=== PATIENT | male | born 1960 | race Caucasian/White ===

== ENCOUNTER 2021-08-13 11:11 | Emergency (ER) | payer SELFPAY ==
[2021-08-13 11:14] VITALS: BP 187/94; PULSE 77; RESP 16; TEMP 36.4; O2SAT 100
[2021-08-13] MEDS: Lidocaine 2% Jelly 6 ML SYR (11:50)
[2021-08-13 11:54] LABS: Bilirubin Negative (Negative); Blood Moderate (Negative); Clarity Clear (Clear); Glucose Negative (Negative); Ketones Negative (Negative); Leukocyte Esterase Negative (Negative); Nitrite Negative (Negative); Specific Gravity 1.025 (1.005-1.025); Urobilinogen 0.2 EU/dL (Up TO 0.2)
--- NOTE | 2021-08-13 11:56 | ED.GENADUL_ITS ---
Discharge Plan Disposition Patient Disposition: HOME Condition: Stable Discharge Details Clinical Impression: Acute urinary retention Primary Care Provider: Jerzy Arevalo ED Provider: Annie Guevara Home Meds and New Rx's Prescriptions: New tamsulosin [Flomax] 0.4 mg capsule 0.4 mg PO DAILY Qty: 7 0RF Discharge Instructions Instructions: Urinary Retention in Men (ED) Additional Instructions: Take Flomax Stay hydrated Repeat of your urine in 1 week for blood Follow-up with the urologist for removal of your catheter and return earlier should you have fever, chills, decreased urine production Make sure you switch from the larger bag to a leg bag when you are ambulatory Referrals: Jerzy Arevalo [Primary Care Provider] - Dedrick Conde MD [[facility] STAFF PHYSICIAN] - Discharge Data Discharge Date/Time-TO BE ENTERED AT DEPARTURE: 08/13/21 12:35 Medical Decision Making Tee catheter was placed by patient RN Patient tolerated without incident 1000 mL of fluid was drained On reassessment, abdomen is completely nontender His urine will need to be rechecked as he does have RBC's pt made aware He is referred to Dr. Conde for follow-up and placed on flomax Medical Records Medical records reviewed: Yes I reviewed the patient's medical records. HPI General Date/Time Provider Initiated Documentation: 08/13/21 11:41 . HPI Narrative: This 61-year-old male presents with urinary retention for the past 24 hours. He has burning with urination. He states he has had similar symptoms in the past as needed urethral stricture stretch. This is been done in [place] previously. His urologist affiliated with this hospital. He denies any abdominal pain, nausea, vomiting. He does have a history of kidney stone he states he has no flank pain at this time. He is otherwise feeling well. Denies chest pain or breath. Denies any dizziness or weakness. Related Data Home Medications Medication Instructions Recorded Confirmed tamsulosin 0.4 mg capsule (Flomax) 0.4 mg PO DAILY #7 cap 08/13/21 Previous Rx's Medication Instructions Recorded tamsulosin 0.4 mg capsule (Flomax) 0.4 mg PO DAILY #7 cap 08/13/21 Allergies Allergy/AdvReac Type Severity Reaction Status Date / Time No Known Allergies Allergy Unverified 08/13/21 11:31 General Stated Complaint: Urinary VIKTORIYA: 3 Review of Systems All systems reviewed & are unremarkable except as noted in HPI and below PFSH All Active Problems (Updated 08/13/21 @ 12:10 by ABIODUN Moise) Acute urinary retention (Acute) Social History Smoking/Tobacco Use Status: Current every day Smoking risk assessment performed?: Yes Alcohol Intake: current Alcohol Intake frequency: 0-2 drinks per day Alcohol type: beer Drug use: Daily Substance use type: marijuana Do you feel safe at home: Yes Exam Const General: cooperative, comfortable and no acute distress Eyes Sclera: sclerae normal Resp Effort & Inspection: normal respiratory effort Auscultation: clear to auscultation bilaterally Cardio Rate: regular rate GI Other: Mild suprapubic tenderness, no CVA tenderness Skin General skin exam: no rashes or lesions noted Neuro General: patient alert Course Vital Signs Vital signs: Vital Signs Temperature 36.4 C L 08/13/21 11:14 Pulse 77 08/13/21 11:14 Respiratory Rate 16 08/13/21 11:14 Blood Pressure 187/94 H 08/13/21 11:14 Pulse Oximetry 100 08/13/21 11:14 Temperature 36.4 C L 08/13/21 11:14 Temperature Source Skin 08/13/21 11:14 Pulse 77 08/13/21 11:14 Respiratory Rate 16 08/13/21 11:14 Respiratory Effort 08/13/21 11:30 Blood Pressure 187/94 H 08/13/21 11:14 Blood Pressure Position Sitting 08/13/21 11:14 Pulse Oximetry 100 08/13/21 11:14 Oxygen Delivery Method Room Air 08/13/21 11:14 Oxygen Flow Rate 0 08/13/21 11:14 Pain Level 7 08/13/21 11:29 PAWSS Have you Been Recently Intoxicated or Drunk Within the Last 30 days?: No Have you Ever Experienced Previous Episodes of Alcohol Withdrawal?: No Have you ever Experienced Withdrawal Seizures?: No Have you ever Experienced Delirium Tremens(DT)s?: No Have you ever undergone Alcohol Rehabilitation Treatment (i.e, inpt ot outpatient treatment programs)?: No Have you ever Experienced Blackouts?: No Have you ever Combined Alcohol with other Downers within the last 90 days?: No Have you ever Combined Alcohol with any other Substance of Abuse during the last 90 days?: No Positive Blood Alcohol level on Presentation? [PCS.BAL]: No Evidence of Increased Autonomic Activity (i.e. HR>120, tremor, sweating, agitation, nausea)?: No Result: 0
[2021-08-13 11:59] LABS: Bacteria Negative HPF (Negative); C & S Indicated? No; Casts Negative LPF (Negative); Crystals Negative HPF (Negative); Epithelial Cells Few HPF (Negative); Mucus Trace (Negative); WBC 0-2 HPF (0-5)
[2021-08-13 12:40] VITALS: BP 162/100
--- NOTE | 2021-08-13 15:33 | NUR.NOTE ---
Referral for Urology with Dr. Conde sent to office. f/u within 1 week.
== END 2021-08-13 12:35 | disposition home or self-care (01) ==
PROVIDERS: Emergency Provider Physician Assistant; PCP Family Medicine
DX: R33.9 Retention of urine, unspecified (principal); R31.29 Other microscopic hematuria
CPT/HCPCS: 51702; 99284; 81003; 81015

== ENCOUNTER 2021-08-16 10:12 | Emergency (ER) | payer SELFPAY ==
[2021-08-16 10:14] VITALS: BP 188/101; PULSE 90; RESP 16; TEMP 36.8; O2SAT 97
--- NOTE | 2021-08-16 10:20 | ED.GENADUL_ITS ---
Discharge Plan Disposition Patient Disposition: HOME Condition: Stable Discharge Details Clinical Impression: Tee catheter problem Primary Care Provider: Jerzy Arevalo ED Provider: June Engel Home Meds and New Rx's Prescriptions: New hyoscyamine sulfate 0.125 mg tablet,disintegrating 0.125 mg PO QID Qty: 30 0RF Continued tamsulosin [Flomax] 0.4 mg capsule 0.4 mg PO DAILY Qty: 7 0RF Discharge Instructions Instructions: Urinary Retention in Men (ED), Tee Catheter Placement and Care (ED) Additional Instructions: Your symptoms of urinary leakage are likely due to spasms of your bladder. You are being placed on a medication to help with bladder spasms called hyoscyamine. Please take this medication as directed. The urology office will call you soon to schedule a follow-up appointment in the next 1-2 weeks to have your Tee catheter removed. You will still plan to follow-up with your scheduled appointment with urology on September 12, 2021. Continue your Flomax daily as directed. Drink plenty of fluids. Return immediately to the emergency department if you develop any worsening or new concerning symptoms. Stand Alone Forms: Work Release Referrals: Dedrick Conde MD [ [facility] STAFF PHYSICIAN] - Discharge Data Discharge Date/Time-TO BE ENTERED AT DEPARTURE: 08/16/21 17:17 Discharge Physician: June Engel Medical Decision Making 61-year-old male with a history of urethral stricture and BPH who was seen here 3 days ago and had Tee catheter placed for urinary retention presents for urinary leakage around the catheter site for the past few days. Denies fever, vomiting or abdominal pain. Blood pressure hypertensive on arrival, now improved. He appears comfortable and nontoxic. The urine within the tubing and bag appears yellow and clear. The tip of the penis is attached with surgical tape to the tubing otherwise normal exam. His abdomen is soft and nontender. Case discussed with Dr. Conde who recommends keeping the current Tee catheter in place, irrigating and placing patient on antispasmodic medication to help with bladder spasm as this is likely the source of his urinary leakage. Urology office will call patient in the next week or 2 for Tee removal and voiding trial. Patient has a follow-up appointment with urology on 09/12. Patient is agreeable with this plan. No recommendation for urinalysis per Dr. Conde as UA unremarkable for UTI on 08/13. Nursing able to flush the catheter easily with removal of small blood clots but catheter now otherwise flushing clear. Usual and customary return precautions given prior to discharge. Medical Records Medical records reviewed: Yes I reviewed the patient's medical records. HPI General Mode of arrival: ambulatory . Date/Time Provider Initiated Documentation: 08/16/21 10:19 . Limitations to Documentation: no limitations . Information obtained by: patient . HPI Narrative: Pt is a 61yo M w/ a h/o urinary retention seen here 3 days ago and had a Tee catheter placed presents for concern for leaking of urine around the catheter site. Patient states he had urinary retention developing 1 day before seen here in the ED on 08/13. He states surgically Tee catheter was placed for 3 days ago, he has noted leakage of urine around the catheter site. He states he is the catheter also seem to be falling out and he attempted to push it back and put it to his penis. He denies any fever, nausea, vomiting, abdominal pain or dysuria at his urethra. Related Data Home Medications Medication Instructions Recorded Confirmed tamsulosin 0.4 mg capsule (Flomax) 0.4 mg PO DAILY #7 cap 08/13/21 08/16/21 hyoscyamine sulfate 0.125 mg 0.125 mg PO QID #30 tab 08/16/21 disintegrating tablet Previous Rx's Medication Instructions Recorded tamsulosin 0.4 mg capsule (Flomax) 0.4 mg PO DAILY #7 cap 08/13/21 hyoscyamine sulfate 0.125 mg 0.125 mg PO QID #30 tab 08/16/21 disintegrating tablet Allergies Allergy/AdvReac Type Severity Reaction Status Date / Time No Known Allergies Allergy Unverified 08/16/21 10:20 General Stated Complaint: Urinary VIKTORIYA: 3 Review of Systems All systems reviewed & are unremarkable except as noted in HPI and below Constitutional Constitutional: Reports as per HPI, Denies chills and Denies fever(s) Eyes Eyes: Denies blurry vision ENT Ears, Nose, Mouth, and Throat: Denies dizziness, Denies sore throat and Denies throat swelling Cardiovascular Cardiovascular: Denies chest pain and Denies dyspnea Respiratory Respiratory: Denies cough and Denies dyspnea Gastrointestinal Gastrointestinal: Denies abdominal pain, Denies diarrhea and Denies vomiting Genitourinary Genitourinary: Denies hematuria, Reports difficulty urinating and Reports dysuria Musculoskeletal Musculoskeletal: Denies back pain and Denies numbness Integumentary/Breasts Skin/Breast: Denies lesions and Denies rash Neurologic Neurologic: Denies dizziness, Denies localized weakness and Denies numbness Allergic/Immunologic Allergic/Immunologic: Denies throat swelling PFSH All Active Problems (Updated 08/16/21 @ 11:30 by June Engel DO) Tee catheter problem (Acute) Acute urinary retention (Acute) Medical History (Updated 08/16/21 @ 11:30 by June Engel DO) BPH (benign prostatic hyperplasia) Kidney stones Urethral stricture Surgical History (Updated 08/16/21 @ 11:16 by June Engel DO) Hx of lithotripsy Social History Smoking/Tobacco Use Status: Current every day Smoking risk assessment performed?: Yes Alcohol Intake: current Alcohol Intake frequency: 0-2 drinks per day Alcohol type: beer Drug use: Daily Substance use type: marijuana Do you feel safe at home: Yes Do you feel safe in your relationship?: Yes Exam Const General: cooperative, healthy appearing and no acute distress Orientation: alert, awake and oriented x3 HENMT Head: normal to inspection Mouth: oral mucosae normal Eyes General: appearance normal, both eyes and all related structures Neck Neck: normal visual inspection Resp Effort & Inspection: normal respiratory effort and able to speak in complete sentences Auscultation: clear to auscultation bilaterally Cardio Rate: regular rate Rhythm: regular rhythm GI Palpation: soft, not firm, no guarding, not rigid and nontender Other: Tee catheter in place. There is surgical tape connecting the catheter to the end of the penis. Penis appears normal to inspection. Normal scrotum. No testicular tenderness or edema. Urine within tubing and bag is yellow and clear. Skin General skin exam: no rashes or lesions noted Neuro General: patient alert, patient awake and patient oriented x3 Motor: muscle tone normal throughout Extrem General: normal to inspection and full ROM Psych Appearance: grossly normal Affect: normal affect Course Vital Signs Vital signs: Vital Signs Temperature 98.2 F 08/16/21 10:14 Pulse 90 08/16/21 10:14 Respiratory Rate 16 08/16/21 10:14 Blood Pressure 188/101 H 08/16/21 10:14 Pulse Oximetry 97 08/16/21 10:14 Temperature 98.2 F 08/16/21 10:14 Temperature Source Skin 08/16/21 10:14 Pulse 90 08/16/21 10:14 Respiratory Rate 16 08/16/21 10:14 Blood Pressure 188/101 H 08/16/21 10:14 Blood Pressure Position Sitting 08/16/21 10:14 Pulse Oximetry 97 08/16/21 10:14 Oxygen Delivery Method Room Air 08/16/21 10:14 Oxygen Flow Rate 0 08/16/21 10:14 Pain Level 0 08/16/21 10:14
[2021-08-16 10:23] VITALS: BP 163/97
--- NOTE | 2021-08-16 11:32 | NUR.NOTE ---
Nursing Note: Pt info faxed to urology to be seen within a week for urinary retention. [place], ED
== END 2021-08-16 17:17 | disposition home or self-care (01) ==
PROVIDERS: Emergency Provider Physician Assistant; PCP Family Medicine
DX: T83.038A Leakage of other urinary catheter, initial encounter (principal)
CPT/HCPCS: 99283

== ENCOUNTER 2021-08-28 17:29 | Outpatient (REF) | payer SELFPAY | END 2021-08-28 17:30 | disposition home or self-care (01) | LOC: LBN 17:29 | PROVIDERS: PCP Family Medicine; Visit Provider Nurse Practitioner Gerontology | DX: R33.8 Other retention of urine (principal) | CPT/HCPCS: 87077; 87086; 87186 ==